=== PATIENT | female | born 1940 | race Caucasian/White ===

== ENCOUNTER 2020-07-18 10:00 | Emergency (ER) | payer MEDICARE ==
[~2020-07-18] VITALS: Ht 149.9 cm; Wt 61.4 kg
[2020-07-18] MEDS ORDERED: METFORMIN500 M2 PO (11:13)
[2020-07-18] MEDS ORDERED: GLUCOSAMINE/CHO1 CA1 PO (11:14)
[2020-07-18] MEDS ORDERED: HYZAAR1 TA2 PO (11:14)
[2020-07-18] MEDS ORDERED: TOPROL XL25 M1 PO (11:14)
[2020-07-18] MEDS ORDERED: MSM500 MG PO (11:14)
[2020-07-18] MEDS ORDERED: VALACYCLOVIR500 MG PO (11:15)
[2020-07-18] MEDS ORDERED: VITAMIN E100 UNI2 PO (11:15)
[2020-07-18] MEDS ORDERED: MOTRIN200 MG PO (11:15)
[2020-07-18] MEDS ORDERED: ATORVASTATIN CA40 MG PO (11:16)
[2020-07-18 11:21] VITALS: BP 217/87
[2020-07-18] MEDS ORDERED: VOLTAREN1%GEL TOP (11:54)
== END 2020-07-18 11:55 | disposition home or self-care (01) ==
LOC: ED 10:00
DX: M19.012 Primary osteoarthritis, left shoulder (principal); I10 Essential (primary) hypertension; E11.9 Type 2 diabetes mellitus without complications; Z79.84 Long term (current) use of oral hypoglycemic drugs; Z20.822 Contact with and (suspected) exposure to COVID-19